=== PATIENT | female | born 1970 | race Caucasian/White ===

== ENCOUNTER 2020-10-30 13:06 | Outpatient (CLI) | payer BC, SELFPAY | END 2020-10-30 13:07 | disposition home or self-care (01) | LOC: ANHCOVIDVC 13:06 | PROVIDERS: PCP Internal Medicine | DX: Z23 Encounter for immunization (principal) | CPT/HCPCS: 0001A; 91300 ==

== ENCOUNTER 2020-11-20 13:03 | Outpatient (CLI) | payer BC, SELFPAY | END 2020-11-20 13:04 | disposition home or self-care (01) | LOC: ANHCOVIDVC 13:03 | PROVIDERS: PCP Internal Medicine | DX: Z23 Encounter for immunization (principal) | CPT/HCPCS: 0002A; 91300 ==

== ENCOUNTER 2021-07-17 14:13 | Emergency (ER) | payer BC, SELFPAY ==
--- NOTE | ~2021-07-17 | CT_ITS ---
EXAMINATION: CT brain wo con DATE: 07/17/2021 16:01 INDICATION: Headache. TECHNIQUE: Computed tomography (CT) of the head was performed without intravenous contrast. The mA wa s adjusted according to patient size. Iterative reconstruction technique was employed. The dose-lengt h product was 605.33 mGy-cm. 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 There is chronic encephalomalacia in the anteroinferior frontal lobes, left worse than right, which is a typical distribution of traumatic brain injury. There is chronic encephalomalacia in anterior right frontal lobe. There is no intracra nial hemorrhage, acute infarction, or abnormal intracranial mass lesion. The ventricles are normal in size. There is mild mucosal thickening in the paranasal sinuses. The mastoid air cells are normal. T he orbits are normal. IMPRESSION: 1. Multifocal chronic encephalomalacia. Reviewed, dictated and finalized at location A. [employer]CH[employer]
[2021-07-17 14:36] VITALS: BP 118/65; PULSE 69; RESP 16; TEMP 36.1; O2SAT 100
--- NOTE | 2021-07-17 15:35 | ED.HA ---
HPI - Headache General Chief Complaint: Headache Stated Complaint: headache 4-5 weeks Time Seen by Provider: 07/17/21 15:14 Source: patient Mode of arrival: ambulatory Limitations: no limitations History of Present Illness HPI Narrative: This is a 51 year old female that presents to the ER for headache ongoing for the last month. Reports a dull tension headache. It has been present daily for about a month. She does get some relief with [id number] medications, but then the headache returns. She called her primary who prompted her to be seen in the ED for a scan of her brain. Denies any associated symptoms. Denies fever, vision changes, stiff neck, vomiting, numbness, or weakness. Related Data Allergies Allergy/AdvReac Type Severity Reaction Status Date / Time No Known Allergies Allergy Verified 09/13/19 08:49 Review of Systems Review of Systems: CONSTITUTIONAL: Denies fever EYES: Denies visual changes GASTROINTESTINAL: Denies vomiting NEUROLOGIC: Reports headache. Denies numbness, or weakness. All systems reviewed & are unremarkable except as noted in HPI and below PMFSH Past Medical History Medical History (Updated 07/17/21 @ 17:45 by Eve Zarco PA-C) No active medical problems Surgical History Surgical History History of elbow surgery Right and left- 07/2018 Dr. Blackburn History of rotator cuff surgery Right- Dr. 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 HEAD: Normocephalic, atraumatic. EYES: PERRLA and EOMI. ENT: Nares clear, no rhinorrhea or epistaxis. Mucous membranes moist. Oropharynx without tonsillar hypertrophy exudate or other lesions. Bilateral TMs pearly castaneda non-bulging NECK: Supple. No adenopathy or masses. CHEST: Clear to auscultation. No respiratory distress. No wheezes rales or rhonchi HEART: Regular rate and rhythm. No murmur heard. Normal peripheral pulses. EXTREMITIES: Normal range of motion. No edema. SKIN: Warm, dry, no rash. NEURO: No focal deficits. Alert and oriented x3. Cranial nerves II through XII grossly intact PSYCH: Normal mood and affect Course Vital Signs Vital signs: Vital Signs Temperature 97.0 F L 07/17/21 14:36 Pulse Rate 69 07/17/21 14:36 Respiratory Rate 16 07/17/21 14:36 Blood Pressure 118/65 07/17/21 14:36 Pulse Oximetry 100 07/17/21 14:36 Temperature 97.0 F L 07/17/21 14:36 Pulse Rate 69 07/17/21 14:36 Respiratory Rate 16 07/17/21 14:36 Blood Pressure 118/65 07/17/21 14:36 Pulse Oximetry 100 07/17/21 14:36 MDM - Headache MDM Narrative Medical decision making narrative: Patient presents to the emergency department for headaches ongoing for the last month. She is afebrile and nontoxic-appearing. She is neurologically intact. CT scan of the brain is without acute findings. Shows multifocal chronic encephalomalacia consistent with her previous traumatic brain injury. Patient was updated on case findings. She reports relief with migraine cocktail. She is stable and felt appropriate for further outpatient evaluation. Instructed to follow-up with her primary doctor. She was given warnings to return to the ER Imaging Data Radiologist's impression: ITS Impressions Head CT 07/17/21 16:05 IMPRESSION: 1. Multifocal chronic encephalomalacia. Critical Care Time Critical
[2021-07-17] MEDS: SODIUM CHLORIDE 0.9% IV 1,000 ML 999 ML IV CONT (16:18)
[2021-07-17] MEDS: diphenhydrAMINE HCl INJ 50 MG/ML VIAL 25 MG IV PUSH (16:19)
[2021-07-17] MEDS: KETOROLAC 30 MG/ML VIAL (*BKC) IV PUSH (16:19)
[2021-07-17] MEDS: METOCLOPRAMIDE HCL INJ 10 MG/2 ML VIAL IV PUSH (16:20)
[2021-07-17 18:08] VITALS: BP 130/80; RESP 16; TEMP 36.4; O2SAT 98
== END 2021-07-17 18:10 | disposition home or self-care (01) ==
PROVIDERS: Emergency Provider Emergency Medicine; PCP Internal Medicine
DX: R51.9 Headache, unspecified (principal); Z87.891 Personal history of nicotine dependence
CPT/HCPCS: 70450; 96361; 96374; 96375; 99284; J0131; J1200; J1885; J2765; J7030

== ENCOUNTER 2021-08-27 13:13 | Outpatient (CLI) | payer BC, SELFPAY ==
--- NOTE | 2021-08-27 13:15 | ECG_ITS ---
Measurements Intervals [place] Rate: 61 P: 59 MT: 171 QRS: 60 QRSD: 113 T: 32 QT: 407 QTc: 411 Interpretive Statements SINUS RHYTHM INCOMPLETE RIGHT BUNDLE BRANCH BLOCK BASELINE ARTIFACT- I, II, III, AVR, AVL BORDERLINE ECG Electronically Signed On 08-27-2021 13:57:56 MOLD INSPECTOR by Reuben Simon D.O.
== END 2021-08-27 13:14 | disposition home or self-care (01) ==
LOC: ANHSURGERY 13:15
PROVIDERS: PCP Physician Assistant; Visit Provider Obstetrics & Gynecology
DX: Z01.818 Encounter for other preprocedural examination (principal); N83.209 Unspecified ovarian cyst, unspecified side; Z87.891 Personal history of nicotine dependence
CPT/HCPCS: 36415; 86850; 86900; 86901; 93005

== ENCOUNTER 2021-08-29 00:16 | Day surgery (SDC) | payer BC, SELFPAY ==
[2021-08-26 12:43] VITALS: BMI 22.6
--- NOTE | 2021-08-26 12:52 | PC.NURSE ---
Report to the Outpatient Waiting Room, entrance under the green pavilion located off [facility], at time 10:00 on date 08/29/21. OR Time: 12:00. - You will be asked a series of questions to screen for COVID 19 for your protection. - A mask is required within the hospital. - No visitors are allowed at this time. Preoperative COVID Testing Requirements: No COVID Test needed if: (proof is required; if not received patient will have Rapid Test prior to entry) - Patient has received COVID Vaccine at least 14 days prior to procedure date or - Patient has positive COVID test result within last 90 days of surgery date. COVID Test needed if above criteria is not met Patients may have clear liquids (water, carbonated beverages, clear teas, apple juice) until 3 hours prior to surgery (9:00) with a maximum of 20 ounces. - No food from midnight until time of surgery Take the following medications with a SIP of water the morning of surgery: THYROID Medications to discontinue per physician: VITAMINS/SUPPLEMENTS Date to take last dose: 08/26/21 Please no make-up, nail nepali, hairspray, perfume, deodorant, or body powder the day of surgery. No jewelry (including any body piercings) or valuables the day of surgery, leave them at home. Please take a shower or bath the night before, or the morning of, surgery with an antibacterial soap. Wear comfortable, loose fitting clothing. - Jewelry must be removed prior to entering the operating room. Rings and piercings that are not removed may be cut off. - The hospital will not accept responsibility for valuables. - Please leave all valuables, including medications, at home the day of surgery. If you are going home after surgery, a licensed ups driver must drive you home. - NO public transportation without another adult. - We recommend that an adult stay with you for 24 hours following discharge. - We also recommend that you do not drive, make important decision, drink alcoholic beverages, or take any drugs that were not prescribed by your health care provider for at least 24 hours after your discharge time. Follow any additional instructions given to you from your surgeon. Telephone instructions given to ROHINI MACIEL and asked if any additional questions and then verbalized understanding. Patient advised to call surgeon office or pre surgery nurse liaison [phone] if any additional questions.
--- NOTE | 2021-08-27 07:53 | PM.IMHP ---
H&P: HPI History of Present Illness Date/Time: 08/27/21 07:53 This is a 51-year-old female 1 para 1 admitted for laparoscopic left salpingo-oophorectomy secondary to a large irregular ovarian cyst. She underwent ultrasound which showed left ovary with solid measurement. Risks and benefits reviewed including but not exclusive of , aspiration pneumonia, bleeding, transfusion, perforation injury to bowel, bladder, ureters, or other internal organs with need for open laparotomy. She received the ACOG handout entitled laparoscopy and had all questions answered. She asked to proceed. She will also have a right labial skin tag removed which has bothered her with the her underwear and during sexual intercourse. Chief Complaint: Left ovarian cyst and right labial skin tag Review of Systems Review of Systems: All systems reviewed & are unremarkable except as noted in HPI and below PMFSH Past Medical History Medical History No active medical problems Stroke Surgical History Surgical History History of elbow surgery Right and left- 07/2018 Dr. Blackburn History of rotator cuff surgery Right- Dr. 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 Spiritual care concerns: No Meds Home Medications and Allergies Home Medications Medication Instructions Recorded Confirmed Type cholecalciferol (vitamin D3) 1,250 1,250 mcg PO WEEKLY 08/22/21 08/26/21 History mcg (50,000 unit) capsule magnesium 200 mg tablet 200 mg PO DAILY tablet 08/22/21 08/26/21 History melatonin 5 mg capsule 5 mg PO HS 08/22/21 08/26/21 History progesterone micronized 200 mg 300 mg PO QHS cap 08/22/21 08/26/21 History capsule levothyroxine 50 mcg PO DAILY 08/26/21 08/26/21 History testosterone 1 pump TRANSDERMAL HS 08/26/21 08/26/21 History Allergies Allergy/AdvReac Type Severity Reaction Status Date / Time No Known Allergies Allergy Verified 08/26/21 12:40 Exam Const: General: no acute distress Eyes: General: appearance normal, both eyes and all related structures Neck: Neck: supple and no JVD Thyroid: thyroid normal Resp: Effort & Inspection: normal respiratory effort Auscultation: clear to auscultation bilaterally Cardio: Rate: regular rate Rhythm: regular rhythm GI: Inspection: non-distended GI Palp: Yes Soft to palpation, No Tenderness to palpation present (GI) and No Guarding due to palpation present (GI) Auscultation: normal bowel sounds : External Female Exam: normal external appearance and lesion (Right labial skin tag) Speculum Exam - Cervix: normal appearance of the cervix Bimanual exam- vagina & uterus: uterine size normal Bimanual Exam- Adnexa, other: Adnexal mass present on the right non-tender Skin: General skin exam: no rashes or lesions noted Extrem: General: normal to inspection and no edema Psych: Mental Status: mental status grossly normal Affect: normal affect Assessment and Plan Additional Plan Impression: Is left-sided complex ovarian cyst and right labial skin tag Plan: Laparoscopic LSO and removal of right
[2021-08-29] VITALS (8 sets, daily range): BP systolic 91–148; BP diastolic 48–77; PULSE 60–96; RESP 14–20; TEMP 36.6–36.9; O2SAT 99–100; BMI 23.7
--- NOTE | 2021-08-29 07:14 | WPDHPUPDATE1 ---
History and Physical Update Update Date/Time: 08/29/21 07:14 History and Physical has been reviewed, including an updated exam of the patient. There are NO changes in the patient's condition. Risks, benefits, and alternatives have been discussed and questions answered. Patient agrees to proceed with procedure.
[2021-08-29] MEDS: ACETAMINOPHEN 500 MG TABLET 1000 MG PO (10:10)
[2021-08-29] MEDS: KETOROLAC 15 MG/ML VIAL (*BKC) IV PUSH (10:16)
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
--- NOTE | 2021-08-29 11:09 | SUR.PREOP ---
1108 PT VOICED PRIOR TO OR
[2021-08-29] MEDS: LACTATED RINGERS 1,000 ML 30 ML IV CONT ×2 (11:12→14:00)
--- NOTE | 2021-08-29 11:38 | SUR.PREOP ---
[address] JENNINGS IS RUNNING ABOUT 45MIN BEHIND AND THAT SHE IS NEXT - UNDERSTANDING VOICED. PT STATES THAT SHE WILL TEXT SPOUSE AND LET HIM KNOW.
--- NOTE | 2021-08-29 12:24 | SUR.PREOP ---
1215 PT AMBULATED TO AND FROM BATH ROOM
--- NOTE | 2021-08-29 13:30 | W.PM.PROC2 ---
Procedure Note - Detailed Date of Procedure 08/29/21 Pre-op Diagnosis large left ovarian cyst/r labial skin lesion Post-op Diagnosis same Procedure Performed Laparoscopic left salpingo-oophorectomy and excision right labial skin Surgeon Mario Umanzor MD Anesthesia general Indications This is a 51-year-old female with a complex left ovarian cyst that appeared to be a dermoid on ultrasound as well as procedure today. She also had a right labial skin tag lesion that was removed without difficulty Findings Large left ovarian cyst with hair and oil. Normal-appearing uterus ovaries and tubes otherwise. A small right labial lesion was seen which was removed this entirety. Description of Procedure The patient was prepped draped in the normal sterile fashion placed in the dorsal lithotomy position. Under excellent general trach anesthesia weighted speculum placed posterior fornix vagina. Anterior lip of the cervix grasped with a single-tooth tenaculum and the Giordano's count cannula inserted into the cervix and attached to the single-tooth to be used later for uterine manipulation. After emptying the bladder clear urine the weighted speculum was removed. Gloves were changed. An infraumbilical incision made the Veress needle passed in the abdomen. Abdomen filled with CO2 gas [id number]. 5mm trocar advanced under direct visualization assuring no injury. Patient placed in Trendelenburg and a suprapubic incision made. 5mm trocar advanced under direct visualization assuring no injury. This large left ovarian cyst was seen in photo documentation undertaken. A left lower quadrant incision made 11mm trocar advanced under direct visualization assuring no injury. The remainder the pelvis appeared within normal limits. The infundibulopelvic structure was grasped with the LigaSure clamped burned and cut and placed in Endo-Catch. This was drained of its sebaceous fluid hair was noted. Irrigation was undertaken and the bag was removed through the left lower quadrant piecemeal. Gas was removed from the abdomen the in and the incisions closed with 4 Monocryl and glue. The patient was awakened went recovery in satisfactory condition after removal of of small right labial skin tag which was cauterized with point cautery at 35 w per 2nd. This was sent for pathology all sponge, needle, instrument counts were correct. There were no immediate complications Estimated Blood Loss 5 Drains No Packing No Pathology yes Complications No immediate complications Condition stable Disposition PACU
== END 2021-08-29 16:06 | disposition home or self-care (01) ==
PROVIDERS: PCP Physician Assistant; Visit Provider Obstetrics & Gynecology
PROC: (CPT 49320; principal; 2021-08-29 11:30)
PROC: (CPT 58661; 2021-08-29 11:30)
DX: D27.1 Benign neoplasm of left ovary (principal); N90.89 Other specified noninflammatory disorders of vulva and perineum; E03.9 Hypothyroidism, unspecified; Z86.73 Personal history of transient ischemic attack (TIA), and cerebral infarction without residual deficits; Z87.891 Personal history of nicotine dependence; F12.90 Cannabis use, unspecified, uncomplicated
CPT/HCPCS: 58661; 11200; 88305; A9270; J1100; J1170; J1885; J2250; J2405; J2704; J2710; J3010; J7120

== ENCOUNTER → 2022-10-14 08:40 | Outpatient (CLI) | payer BC, SELFPAY ==
--- NOTE | ~2022-10-14 | MR_ITS ---
MRI of the left shoulder Technique: Axial proton-density fat-sat images, coronal proton density fat-sat and T2 fat-sat images, and sagittal T1-weighted and T2 fat-sat images were acquired. Clinical History: Pain Findings: There is mild AC joint degenerative change. No significant subacromial spur. Coracoclavicul ar, coracoacromial, and coracohumeral ligaments are intact. There is high-grade partial thickness articular surface tearing at the posterior, distal supraspinatu s tendon insertion, with tear measuring 9 x 8 mm in extent, involving approximately 80-90% of the tot al tendon thickness. Infraspinatus tendon is intact, without partial or full-thickness tear. Subscapu andrew tendon is intact. Tendon of the long head of the biceps is intact. No definite labral tear identified. No degenerative change or effusion of the glenohumeral joint. Inferior glenohumeral ligament is intac t. No fluid distention of the subacromial/subdeltoid bursa. No muscle atrophy or edema. Impression: 9 x 8 mm high-grade partial-thickness articular surface tear at the posterior, distal supraspinatus t endon insertion, as detailed above. Reviewed, dictated and finalized at location . 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
== END ==
PROVIDERS: PCP Physician Assistant; Visit Provider Orthopaedic Surgery
DX: M25.512 Pain in left shoulder (principal)
CPT/HCPCS: 73221

== ENCOUNTER 2023-06-04 00:19 | Day surgery (SDC) | payer BC, SELFPAY ==
[2023-05-26 13:15] VITALS: BMI 23.5
[2023-06-04 10:01] VITALS: BP 98/57; PULSE 71; RESP 18; TEMP 36.4; O2SAT 98; BMI 23.9
--- NOTE | 2023-06-04 10:03 | SUR.PREOP ---
Patient states no menstrual period for over a year. Notified Dr. Gonzales. He states no urine test necessary.
[2023-06-04] MEDS: LACTATED RINGERS 1,000 ML 150 ML IV CONT (10:12)
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
[2023-06-04 10:52] VITALS: BP 143/69; PULSE 73; RESP 20; O2SAT 100
[2023-06-04 11:02] VITALS: BP 112/78; PULSE 80; RESP 21; O2SAT 100
[2023-06-04 11:12] VITALS: BP 116/84; PULSE 81; RESP 18; O2SAT 100
== END 2023-06-04 11:14 | disposition home or self-care (01) ==
PROVIDERS: PCP Physician Assistant; Visit Provider Internal Medicine Gastroenterology
PROC: 0DJD8ZZ Inspection of Lower Intestinal Tract, Via Natural or Artificial Opening Endoscopic (ICD-10-PCS; CPT 45378; principal; 2023-06-04 11:00)
DX: Z12.11 Encounter for screening for malignant neoplasm of colon (principal); D12.3 Benign neoplasm of transverse colon; K92.1 Melena; E03.9 Hypothyroidism, unspecified; Z86.73 Personal history of transient ischemic attack (TIA), and cerebral infarction without residual deficits; Z87.891 Personal history of nicotine dependence
CPT/HCPCS: 45385; 88305; J2704; J7120